=== PATIENT | male | born 1995 | race Caucasian/White ===

== ENCOUNTER 2016-11-29 15:25 | Emergency (ER) | payer OTHER ==
[~2016-11-29] VITALS: Ht 175.3 cm; Wt 77.1 kg
--- NOTE | ~2016-11-29 | CT71 ---
[facility] A Service of [facility] & [facility] RADIOLOGY TEXT RESULTS PATIENT: LORRI DINH JR LOCATION: SED : [birth year] UNIT #: [id number] AGE: [address]: Naresh Grider MD SEX: M ORDER DR: [id number] [place] [id number] E MR#: [id number] Acc #: [id number] NAME: LORRI DINH JR : 1995 SEX: M STUDY DATE/TIME: 11/29/2016 18:08 UNIT: SED ROOM: STUDY DESCRIPTION: CT Head Wo Contrast Attending Physician: Naresh Grider M.D. Ordering Physician: Naresh Grider M.D. Primary Care Physician: Primary Care Physician No MEDICAL IMAGING REPORT This report is preliminary unless electronic signature is present. EXAM CT head 11/29/2016 HISTORY Pain, overdose today, is not coming out of OD currently per Dr. Grider, still confusion, generalized weakness, drowsy. FINDINGS CT head performed skull base through vertex without intravenous contrast. No prior studies for comparison. This CT exam was performed with one or more of the following radiation dose reduction techniques: Automatic exposure control, adjustment of mA and/or kV according to patient size, and iterative reconstruction. The brainstem is unremarkable. The cerebellum and cerebral hemispheres show normal pang matter-white matter differentiation. No hemorrhage. No evidence of acute cortical ischemia. The midline structures are nondisplaced. The basal ganglia are intact. The ventricles, cisterns and sulci are normal in size and contour. There is no intra- or extraaxial mass effect or abnormal intracranial fluid collection. The intraorbital soft tissues have an appearance raising possibility of dysconjugate gaze. Please correlate with exam. This could be an artifact related to ocular motion during image acquisition. Mucous retention cyst or polyp left maxillary sinus. No evidence of acute sinusitis. No fracture. IMPRESSION 1. The brain appears normal. If the patient has ongoing neurologic symptoms, consider followup imaging, preferably with MRI if patient is candidate. 2. Appearance of the intraorbital soft tissues raises possibility of dysconjugate gaze. Correlate with exam. Appearance could be an artifact related to ocular motion during image acquisition. 3. Small mucous retention cyst or polyp left maxillary sinus. [facility] A Service of [facility] & [facility] RADIOLOGY TEXT RESULTS PATIENT: LORRI DINH JR LOCATION: [facility] [place] 95 UNIT #: [id number] AGE: [address]: Naresh Grider MD SEX: M ORDER DR: 4. No fracture. Dictated by... Ulises Ignacio M.D. THIS IS AN ELECTRONICALLY VERIFIED REPORT Ulises Ignacio M.D. at 12/01/2016 2:46 PM LUIS ANTONIO/mae TD: 11/30/2016 00:21 JOB #: [id number] MEDICAL IMAGING REPORT Page 1 of 1
== END 2016-11-29 18:27 | disposition home or self-care (01) ==
LOC: SED 15:25
DX: F11.129 Opioid abuse with intoxication, unspecified (principal); R41.82 Altered mental status, unspecified
CPT/HCPCS: 70450; 96361; 96374; 96376; 99285